=== PATIENT | male | born 1960 | race African-American/Black ===

== ENCOUNTER 2019-11-25 16:18 | Emergency (ER) | payer MEDICAID, OTHER ==
[~2019-11-25] VITALS: Ht 182.9 cm; Wt 90.7 kg
[~2019-11-25 16:18] MED LIST: IBUP-51 PO
--- NOTE | 2019-11-25 17:41 | NUR ---
FLORES RA 89 "Homeless from back of apartment builing ETOH and was drinking" PT TO BED 6, PT ON MONITOR, VSS, NADN OTED, -SOB. PENDING MD WATKINS
[2019-11-25] MEDS ORDERED: MIDAZOLAM HCL 2 MG/2ML VIAL ONE (17:58)
[2019-11-25] MEDS ORDERED: MIDAZOLAM HCL 2 MG/2ML VIAL IV ONE (18:00)
[2019-11-25 18:13] LABS: BASOPHILS # (AUTO) 0.1 /CMM (0.0-0.2); BASOPHILS % (AUTO) 2.4 % (0.0-2.0); EOSINOPHILS % (AUTO) 1.9 % (0.0-6.0); HEMATOCRIT 39 % (39-51); HEMOGLOBIN 12.6 g/dL (13.5-17.5); LYMPHOCYTES # (AUTO) 3.2 /CMM (0.8-4.8); LYMPHOCYTES % (AUTO) 60.6 % (20.0-44.0); MEAN CORPUSCULAR HGB CONC 33 g/dl (31.0-36.0); MEAN CORPUSCULAR VOLUME 81 fL (80-96); MONOCYTES # (AUTO) 0.4 /CMM (0.1-1.30); MONOCYTES % (AUTO) 8.1 % (2.0-12.0); NEUTROPHILS # (AUTO) 1.4 /CMM (1.8-8.9); PLATELET COUNT (AUTO) 251 /CMM (150-450); RED BLOOD CELL COUNT(AUTO) 4.73 MIL/uL (4.5-6.0); WHITE BLOOD COUNT (AUTO) 5.2 K/uL (4.3-11.0)
[2019-11-25 18:47] LABS: CALCIUM, SERUM 8.7 mg/dL (8.5-10.1); CREATININE 0.7 mg/dL (0.6-1.3); POTASSIUM 3.3 mmol/L (3.5-5.1)
[2019-11-25 18:54] LABS: ALBUMIN 4.2 g/dL (3.4-5.0); BILIRUBIN,DIRECT 0.1 mg/dL (0.0-0.2); BILIRUBIN,TOTAL 0.4 mg/dL (0.2-1.0); TOTAL PROTEIN, SERUM 8.5 g/dL (6.4-8.2)
[2019-11-25 19:46] VITALS: BP 175/83
--- NOTE | 2019-11-25 22:47 | NUR ---
Patient given written and verbal discharge instructions. Patient verbalizes understanding of nstructions. Patient is ambulatory with steady gait. Refuses offer of halfway placement. Patient given list of available shelters in surrounding area.
== END 2019-11-25 22:47 | disposition home or self-care (01) ==
LOC: ER 16:19
DX: F10.129 Alcohol abuse with intoxication, unspecified (principal); R94.31 Abnormal electrocardiogram [ECG] [EKG]; Z59.0 Homelessness; Y90.8 Blood alcohol level of 240 mg/100 ml or more
CPT/HCPCS: 36415; 80048; 80076; 80307; 85025; 93005; 96374; 99284; J2250; G0480